=== PATIENT | female | born 1995 | race American Indian/Alaskan Native ===

== ENCOUNTER 2017-10-20 19:20 | Emergency (ER) | payer OTHER ==
[2017-10-20 19:58] VITALS: BP 146/85
[2017-10-20 20:25] LABS: HCG Qualitative,Urine Negative (Negative)
[2017-10-20] MEDS ORDERED: NORCO 5/325 PO ONE (22:36)
[2017-10-20] MEDS ORDERED: MOTRIN PO ONE (22:37)
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
== END 2017-10-21 00:08 | disposition home or self-care (01) ==
LOC: ED 19:20
DX: S16.1XXA Strain of muscle, fascia and tendon at neck level, initial encounter (principal); S39.012A Strain of muscle, fascia and tendon of lower back, initial encounter; J45.909 Unspecified asthma, uncomplicated; V49.49XA Driver injured in collision with other motor vehicles in traffic accident, initial encounter; Y93.89 Activity, other specified; Y92.89 Other specified places as the place of occurrence of the external cause; Y99.8 Other external cause status
CPT/HCPCS: 72100; 72125; 81025; 99284

== ENCOUNTER 2019-03-28 14:35 | Emergency (ER) | payer OTHER ==
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
[2019-03-28 14:45] VITALS: BP 145/94
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
[2019-03-28] MEDS ORDERED: TORADOL IM ONE (17:06)
== END 2019-03-28 17:38 | disposition home or self-care (01) ==
LOC: ED 14:35
DX: S20.219A Contusion of unspecified front wall of thorax, initial encounter (principal); S09.90XA Unspecified injury of head, initial encounter; J45.909 Unspecified asthma, uncomplicated; Z79.899 Other long term (current) drug therapy; E66.01 Morbid (severe) obesity due to excess calories; Z68.42 Body mass index [BMI] 45.0-49.9, adult; V89.2XXA Person injured in unspecified motor-vehicle accident, traffic, initial encounter; Y93.89 Activity, other specified; Y92.410 Unspecified street and highway as the place of occurrence of the external cause; Y99.8 Other external cause status
CPT/HCPCS: 70450; 71046; 96372; 99284; J1885

== ENCOUNTER 2019-07-14 18:42 | Emergency (ER) | payer SELFPAY ==
[2019-07-14 21:13] VITALS: BP 160/79
--- NOTE | 2019-07-14 21:14 | Event Note ---
ED Screening Note Date of service: 07/14/19 Time: 21:12 ED Screening Note: 24 yo female c/o nausea and vomiting x 1 week. She vomit 4 times today. Denies fever and diarrhea. States she just feels sick. LMP 1 month ago This initial assessment/diagnostic orders/clinical plan/treatment(s) is/are subject to change based on patients health status, clinical progression and re- assessment by fellow clinical providers in the ED. Further treatment and workup at subsequent clinical providers discretion. Patient/guardian urged not to elope from the ED as their condition may be serious if not clinically assessed and managed. Initial orders include: cbc, cmp ua, urne hcg
[2019-07-14 22:36] LABS: HCG Qualitative,Urine Negative (Negative)
[2019-07-14 22:39] LABS: Bilirubin,Urine NEG (Negative); Blood,Urine SM (Negative); Color,Urine Yellow (Yellow); Mucus,Urine FEW /HPF; Protein,Urine <15 mg/dL mg/dL (Negative); Urobilinogen,Urine < 2.0 mg/dL (<2.0)
[2019-07-14] MEDS ORDERED: ONDANSETRON 4 MG ODT TAB PO ONE (23:29)
[2019-07-14 23:30] LABS: Hematocrit 36.4 % (30.3-42.9); Hemoglobin 11.6 gm/dl (10.1-14.3); Mean Corpuscular HGB Conc 32 % (30-34); Mean Corpuscular Volume 79 fl (79-97); Platelet Count 340 K/mm3 (140-440); Red Blood Count 4.63 M/mm3 (3.65-5.03); Red Cell Distribution Width 15.8 % (13.2-15.2)
--- NOTE | 2019-07-14 23:32 | Emergency Department Report ---
Vomiting/Diarrhea - HPI Chief Complaint: Nausea/Vomiting/Diarrhea Stated Complaint: MUSCLE SPASMS/NAUSEA/VOMITING Time Seen by Provider: 07/14/19 23:21 Duration: 1 week Severity: mild Nausea/Vomiting Severity: Mild Diarrhea Severity: None Pain Location: Generalized Symptoms: Yes Able to Tolerate Fluids, No Watery Diarrhea, No Bloody diarrhea, No Fever, No Recent Unusual Foods, No Recent Untreated Water, No Contacts w/ Similar Symptoms, No Rash, No Hematuria, No Recent URI Symptoms Other History: 24-year-old -Citizen Of [place] female presents to the emergency complaining of nausea and vomiting 1 week. Patient reports that she has vomited 4 times today with the last time 6 PM. Patient denies any abdominal pain. Patient reports her last menstrual period was 06/04/2019 and she has abnormal cycles. Patient admits to nausea at this time. ED Review of Systems ROS: Stated complaint: MUSCLE SPASMS/NAUSEA/VOMITING Other details as noted in HPI Comment: All other systems reviewed and negative ED Past Medical Hx - Past Medical History Previous Medical History?: Yes Hx Asthma: Yes - Surgical History Past Surgical History?: No - Social History Smoking Status: Never Smoker Substance Use Type: None - Medications Home Medications: Home Medications Medication Instructions Recorded Confirmed Last Taken Type Cyclobenzaprine [Flexeril] 10 mg PO TID PRN #10 tablet 10/20/17 Unknown Rx HYDROcodone/APAP 5-325 [[place] 1 - 2 each PO Q6HR PRN #10 tablet 10/20/17 Unknown Rx 5/325] Ibuprofen [Motrin 800 MG tab] 800 mg PO Q8HR PRN #20 tablet 10/20/17 Unknown Rx Cyclobenzaprine [Flexeril] 10 mg PO TID PRN #20 tablet 03/28/19 Unknown Rx Naproxen [Naprosyn] 500 mg PO BID #14 tablet 03/28/19 Unknown Rx Ondansetron [Zofran Odt] 4 mg PO Q8HR #12 tab.rapdis 07/15/19 Unknown Rx Vomiting Diarrhea Exam - Exam General: Vital signs noted. No distress. Alert and acting appropriately. HEENT: Yes Moist Mucous Membranes, No Pharyngeal Erythema, No Pharyngeal Exudates, No Rhinorrhea, No Conjuctival Injection, No Frontal Tenderness, No Maxillary Tenderness Neck: No Adenopathy, No Rigidity Lungs: Yes Clear Lung Sounds, Yes Good Air Exchange, No Wheezes, No Stridor, No Cough, No Nasal Flaring, No Retractions, No Use of Accessory Muscles Heart exam: Regular: Yes, Murmur: No, Tachycardia: No Abdomen: Tenderness: No, Peritoneal Signs: No, Distention: No, Hyperactive Bowel sounds: No Neurologic: Alert and oriented, no deficits. Musculoskeletal: Unremarkable. ED Course Vital Signs 07/14/19 21:09 Temperature 98.7 F Pulse Rate 71 Respiratory 16 Rate Blood Pressure 160/79 O2 Sat by Pulse 100 Oximetry ED Medical Decision Making - Lab Data Result diagrams: 07/14/19 22:48 07/14/19 22:48 - Medical Decision Making 24-year-old -Citizen Of [place] female presents to the emergency complaining of nausea and vomiting 1 week. Patient reports that she has vomited 4 times today with the last time 6 PM. Patient denies any abdominal pain. Patient reports her last menstrual period was 06/04/2019 and she has abnormal cycles. Patient admits to nausea at this time. Critical care attestation.: If time is entered above; I have spent that time in minutes in the direct care of this critically ill patient, excluding procedure time. ED Disposition Clinical Impression: Nausea and vomiting in adult patient Disposition: DC-01 TO HOME OR SELFCARE Is pt being admited?: No Does the pt Need Aspirin: No Condition: Stable Instructions: Acute Nausea and Vomiting (ED) Additional Instructions: Take medication as prescribed. Follow up with a primary care provider if his symptoms persist or gets worse Prescriptions: Ondansetron [Zofran Odt] 4 mg PO Q8HR #12 tab.rapdis Referrals: YUSEF KAY MD [Primary Care Provider] - 3-5 Days CASS ALMODOVAR MD [Staff Physician] - 3-5 Days
[2019-07-15] LABS: BUN/Creatinine Ratio 17; Blood Urea Nitrogen 10 mg/dL (7-17); Calcium 9.6 mg/dL (8.4-10.2); Hemolysis Index 6
[2019-07-15 00:21] LABS: Alanine Aminotransferase 9 units/L (7-56); Albumin 3.8 g/dL (3.9-5)
[2019-07-15 00:23] LABS: Bilirubin,Direct < 0.2 mg/dL (0-0.2)
== END 2019-07-15 00:50 | disposition home or self-care (01) ==
LOC: ED 18:42
DX: R11.2 Nausea with vomiting, unspecified (principal); J45.909 Unspecified asthma, uncomplicated; Z79.899 Other long term (current) drug therapy
CPT/HCPCS: 36415; 80048; 80076; 81001; 81025; 83690; 85027; Q0162